=== PATIENT | female | born 1945 | race Caucasian/White ===

== ENCOUNTER 2016-11-07 20:00 | Outpatient (CLI) | payer MEDICARE, OTHER ==
--- NOTE | 2016-11-07 22:09 | Ultrasound Preliminary Report ---
Exam: US Ext Limited Non Vascular IMPRESSION: At the palpable lump at the right posterior calf, there is heterogeneous more hyperechoi c subcutaneous soft tissue with increased vascularity compared to the left side. Margins are not well -defined, but approximate measurements are 1.8 x 0.7 x 1.8 cm. Etiology is not certain but this could represent a soft tissue mass versus focal scarring. A MR or CT without and with contrast could be ob tained to further evaluate. RADIA The call report notification system was initiated by Dr. Dominga Jimenez at 21:53 hrs on 11/07/16. The above findings were discussed with Donna Diaz by Dominga Jimenez at 22:07 hrs on 11/07/16. SITE ID: [id number]
--- NOTE | 2016-11-07 22:12 | Ultrasound Report ---
EXAM: RIGHT UPPER EXTREMITY ULTRASOUND - LIMITED EXAM DATE: 11/07/2016 09:22 PM. CLINICAL HISTORY: Right posterior calf lump COMPARISON: None. TECHNIQUE: Real-time scanning was performed with static images obtained. Area scanned is the right po sterior calf at the lump. FINDINGS: At the palpable lump at the right posterior calf, there is heterogeneous more hyperechoic s ubcutaneous soft tissue with increased vascularity compared to the left side. Margins are not well-de fined, but approximate measurements are 1.8 x 0.7 x 1.8 cm. Etiology is not certain but this could re present a soft tissue mass versus focal scarring. A MR or CT without and with contrast could be obtai meena to further evaluate. IMPRESSION: At the palpable lump at the right posterior calf, there is heterogeneous more hyperechoi c subcutaneous soft tissue with increased vascularity compared to the left side. Margins are not well -defined, but approximate measurements are 1.8 x 0.7 x 1.8 cm. Etiology is not certain but this could represent a soft tissue mass versus focal scarring. A MR or CT without and with contrast could be ob tained to further evaluate. RADIA The call report notification system was initiated by Dr. Dominga Jimenez at 21:53 hrs on 11/07/16. The above findings were discussed with Donna Diaz by Dominga Jimenez at 22:07 hrs on 11/07/16. Referring Provider Line: [phone] SITE ID: [id number]
== END 2016-11-07 20:01 | disposition home or self-care (01) ==
LOC: DI 20:00
PROVIDERS: ATTEND Internal Medicine
DX: M79.604 Pain in right leg (principal); R22.9 Localized swelling, mass and lump, unspecified
CPT/HCPCS: 76882

== ENCOUNTER 2016-12-18 06:15 | Day surgery (SDC) | payer MEDICARE, OTHER ==
[2016-12-18] MEDS ORDERED: ceFAZolin 2 GM/50 ML 50 ML IV ONE (06:29)
[2016-12-18] MEDS ORDERED: LACTATED RINGERS 1,000 ML IV ONE (06:49)
[2016-12-18] MEDS ORDERED: SCOPOLAMINE PATCH TOP ONE (07:25)
[2016-12-18] MEDS ORDERED: ONDANSETRON 4 MG/2 ML VIAL IVP ONE (08:00)
[2016-12-18] MEDS ORDERED: LIDOCAINE-MPF 2% 5 ML VIAL IM ONE (08:00)
[2016-12-18] MEDS ORDERED: PROPOFOL 200 MG/20 ML VIAL IVP ONE (08:00)
[2016-12-18] MEDS ORDERED: DEXAMETHASONE 4 MG/ML VIAL IVP ONE (08:00)
[2016-12-18] MEDS ORDERED: MIDAZOLAM 2 MG/2 ML VIAL IVP ONE (08:00)
[2016-12-18] MEDS ORDERED: fentaNYL 100 MCG/2 ML VIAL IVP ONE (08:00)
[2016-12-18] MEDS ORDERED: BUPIVACAINE 0.5% PF 30 ML VIAL SUBQ ONE ×2 (08:01)
[2016-12-18] MEDS ORDERED: KETOROLAC 15 MG/ML VIAL ONE (09:14)
[2016-12-18 09:38] VITALS: BP 157/72
--- NOTE | 2016-12-18 14:34 | OPERATIVE REPORT ---
DATE OF SURGERY: 12/18/2016 00:00:00 PREOPERATIVE DIAGNOSIS: Right calf mass. POSTOPERATIVE DIAGNOSIS: Right calf mass. NAME OF PROCEDURE: Excision of right calf mass. SURGEON: Arlen Hagen MD ANESTHESIOLOGIST: Jolynn Durán FINDINGS: After obtaining informed consent from the patient, she was brought into the operating room and positioned on the operating table in the left lateral decubitus position, taking note of pressure points. LMA was placed by Anesthesia. 2 g of ancef was administered. She was then prepped and draped in the usual sterile fashion and a timeout was taken according to protocol. An elliptical incision was created above the palpable nodule. This was deepened down through the subcutaneous tissue down to the underlying muscle, and the whole mass was excised and passed off as a specimen. This was noted to be fatty tissue consistent with likely an old scar. The cavity was then inspected for signs of bleeding and hemostasis was achieved. The incision was then closed with 3-0 Vicryl and 4-0 Monocryl. Dermabond was then applied. The patient was extubated and taken to the recovery room in stable condition. ESTIMATED BLOOD LOSS: None. COMPLICATIONS: None. SPECIMEN: Right calf lesion. JOB #: [id number] EXT JOB #:[id number] [facility]ITALRocky
== END 2016-12-18 06:16 | disposition home or self-care (01) ==
LOC: SDS 06:15
PROVIDERS: ATTEND Surgery
PROC: 0JBN0ZZ Excision of Right Lower Leg Subcutaneous Tissue and Fascia, Open Approach (ICD-10-PCS; principal; 2016-12-18 07:30)
DX: L90.5 Scar conditions and fibrosis of skin (principal); M79.89 Other specified soft tissue disorders; L08.9 Local infection of the skin and subcutaneous tissue, unspecified; E03.9 Hypothyroidism, unspecified; F32.9 Major depressive disorder, single episode, unspecified; Z90.49 Acquired absence of other specified parts of digestive tract; Z90.710 Acquired absence of both cervix and uterus; Z82.3 Family history of stroke; Z80.9 Family history of malignant neoplasm, unspecified; Z87.891 Personal history of nicotine dependence
CPT/HCPCS: 11402; J0690; J3490; J7120; 88305

== ENCOUNTER 2017-03-15 08:55 | Outpatient (CLI) | payer MEDICARE, OTHER ==
--- NOTE | 2017-03-28 16:39 | Mammography Report ---
DIGITAL SCREENING MAMMOGRAM: 03/15/2017 CLINICAL INDICATION: A 72-year-old, for screening. COMPARISON: The patient reports having had previous mammograms in [place], [place], but previous films are not yet available for comparison. If films become available, an addendum will be issued. TECHNIQUE: Routine CC and MLO projections were obtained of the breasts. FINDINGS: The breasts demonstrate heterogeneously dense fibroglandular parenchyma bilaterally. Coars e and punctate, typically benign calcifications are present. No suspicious masses, clustered microcal cifications, or regions of architectural distortion are identified. IMPRESSION: BENIGN FINDINGS. RECOMMENDATION: ROUTINE ANNUAL SCREENING UNLESS OTHERWISE CLINICALLY INDICATED. BIRADS CATEGORY 2-BENIGN FINDINGS. STANDARD QUALIFYING STATEMENTS 1. This examination was reviewed with the aid of Computer-Aided Detection (CAD). 2. A negative or benign imaging report should not delay biopsy if clinically suspicious findings are present. Consider surgical consultation if warranted. More than 5% of cancers are not identified by i maging. 3. Dense breasts may obscure an underlying neoplasm. JOB #: [id number] EXT JOB #:[id number]
== END 2017-03-15 08:56 | disposition home or self-care (01) ==
LOC: DI 08:55
PROVIDERS: ATTEND Internal Medicine
DX: Z12.31 Encounter for screening mammogram for malignant neoplasm of breast (principal)
CPT/HCPCS: 77067

== ENCOUNTER 2017-03-15 11:47 | Outpatient (CLI) | payer MEDICARE, OTHER ==
[2017-03-16 13:16] LABS: TEST RESULT REPORT
== END 2017-03-15 11:48 | disposition home or self-care (01) ==
LOC: LAB.R 11:47
PROVIDERS: ATTEND Internal Medicine
DX: R19.7 Diarrhea, unspecified (principal)
CPT/HCPCS: 81599; 83630; 87045; 87046; 87177; 87209; 87329; 87493

== ENCOUNTER 2018-02-02 20:51 | Emergency (ER) | payer MEDICARE, OTHER ==
[2018-02-02 21:08] VITALS: BP 161/65
[2018-02-02] MEDS ORDERED: IOPAMIDOL-300 100 ML VIAL ONE (21:50)
[2018-02-02 22:07] LABS: BASOPHILS % (AUTO) 0.6 %; EOSINOPHILS # (AUTO) 0.1 10^3/uL (0.0-0.7); EOSINOPHILS % (AUTO) 3.1 %; HGB - HEMOGLOBIN 12.8 g/dL (12.0-16.0); LYMPHOCYTES # (AUTO) 1.3 10^3/uL (1.5-3.5); LYMPHOCYTES % (AUTO) 29.8 %; MEAN CORPUSCULAR HEMOGLOBIN 30.1 pg (27.0-31.0); MEAN CORPUSCULAR HGB CONC 34.1 g/dL (32.0-36.0); MEAN CORPUSCULAR VOLUME 88.2 fL (81.0-99.0); MEAN PLATELET VOLUME 8.7 fL (7.9-10.8); MONOCYTES # (AUTO) 0.4 10^3/uL (0.0-1.0); MONOCYTES % (AUTO) 10.1 %; NEUTROPHILS # (AUTO) 2.4 10^3/uL (1.5-6.6); NEUTROPHILS % (AUTO) 56.4 %; PLT - PLATELET COUNT 182 10^3/uL (130-450); RED BLOOD COUNT 4.26 10^6/uL (4.20-5.40); RED CELL DISTRIBUTION WIDTH 13.2 % (12.0-15.0); WHITE BLOOD COUNT 4.3 x10^3/uL (4.8-10.8)
[2018-02-02 22:21] LABS: ALBUMIN 3.8 g/dL (3.2-5.5); ALBUMIN/GLOBULIN RATIO 1.4 (1.0-2.2); BILIRUBIN,TOTAL 0.4 mg/dL (0.2-1.0); CALCIUM 9.1 mg/dL (8.5-10.3); CREATININE 0.8 mg/dL (0.4-1.0); TOTAL PROTEIN 6.5 g/dL (6.7-8.2)
[2018-02-02] MEDS ORDERED: IOPAMIDOL-300 100 ML VIAL IVP ONE (22:57)
--- NOTE | 2018-02-02 23:04 | CT Report ---
Procedure Date: 02/02/2018 Accession Number: [id number] / [id number] Procedure: CT - Abdomen/Pelvis W/ CPT Code: FULL RESULT: EXAM: CT ABDOMEN AND PELVIS EXAM DATE: 02/02/2018 10:55 PM. CLINICAL HISTORY: Abd pain post surgery. COMPARISONS: ABDOMEN/PELVIS W/O 01/29/2016 9:52 AM. TECHNIQUE: Routine helical CT imaging was performed through the abdomen and pelvis. IV contrast: 100 ML ISOVUE 300. Enteric contrast: No. Reconstructions: Coronal and sagittal. In accordance with CT protocol optimization, one or more of the following dose reduction techniques were utilized for this exam: automated exposure control, adjustment of mA and/or KV based on patient size, or use of iterative reconstructive technique. FINDINGS: Lung Bases: Unremarkable. Liver: Normal. No masses. Gallbladder/Bile Ducts: Changes of cholecystectomy. No biliary dilatation. Spleen: Normal. Pancreas: Normal. Adrenal Glands: Normal. Kidneys: Normal. No masses or hydronephrosis. Peritoneal Cavity/Bowel: Postoperative changes in the sigmoid colon. No small bowel dilatation, free gas, or free fluid. No abdominal adenopathy. The appendix is well visualized and normal. Pelvic Organs: Normal. The bladder and visualized pelvic organs are within normal limits. Vasculature: No aneurysms or other significant abnormality. Bones: No significant abnormality. Other: None. IMPRESSION: Postoperative changes. No evidence of bowel obstruction or perforation. Normal appendix. RADIA
--- NOTE | 2018-02-02 23:17 | ED Physician Documentation ---
PD HPI ABD PAIN - Stated complaint Stated Complaint: INCISION CONCERNS - Chief complaint Chief Complaint: Wound - History obtained from History obtained from: Patient - History of Present Illness Timing - onset: Today Timing - details: Abrupt onset, Still present Quality: Aching, Sharp Location: RLQ Worsened by: Moving, Palpation Associated symptoms: No: Fever, Nausea, Vomiting Similar symptoms before: Work up / diagnostics Recently seen: Surgery - Additional information Additional information: Patient is a 72 year old female who is presenting to the emergency department for abdominal pain. patient had abdominal surgery a few weeks ago. patient states that she has gently gone back to doing yoga and other activities. today she was painting and stretching and developed severe pain in the right lower quadrant where she had mesh placed. Review of Systems Ten Systems: 10 systems reviewed and negative Constitutional: denies: Fever, Chills GI: reports: Abdominal Pain. 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, Other - Present Medications Home Medications: Ambulatory Orders Medication Instructions Recorded Confirmed Escitalopram [Lexapro] 10 mg PO DAILY 08/13/15 12/18/16 Levothyroxine [Synthroid] 75 mcg PO DAILY 08/13/15 12/18/16 Acetaminophen [Tylenol] 325 mg PO DAILY PRN 12/07/16 12/18/16 Ibuprofen 200 mg PO DAILY PRN 12/07/16 12/18/16 - Allergies Allergies/Adverse Reactions: Allergies Allergy/AdvReac Type Severity Reaction Status Date / Time gabapentin Allergy Hallucinati Verified 02/02/18 21:08 ons milk Allergy Unknown Verified 02/02/18 21:08 hydromorphone HCl * AdvReac Intermediate Nausea Verified 02/02/18 21:08 [From Dilaudid] methocarbamol AdvReac Intermediate Nausea Verified 02/02/18 21:08 - Social History Does the pt smoke?: No Smoking Status: Never smoker Does the pt drink ETOH?: Yes Does the pt have substance abuse?: No - Immunizations Immunizations are current?: No Immunizations: TDAP >10years/unknown - POLST Patient has POLST: No PD ED PE NORMAL - Vitals Vital signs reviewed: Yes - General General: Alert and oriented X 3 - HEENT HEENT: Atraumatic - Cardiac Cardiac: RRR - Respiratory Respiratory: No respiratory distress - Abdomen Abdomen: Soft - Derm Derm: Normal color, Warm and dry - Extremities Extremities: No deformity - Neuro Eye Opening: Spontaneous - Psych Psych: Normal mood PD ED PE EXPANDED - Abdomen Abdomen: Tender to palpation (mild tenderness to palpation or right lower quadrant, no rebound), RLQ, Surgical scars Results - Vitals Vitals: Vital Signs - 24 hr 02/02/18 21:03 Temperature 36.7 C Heart Rate 71 Respiratory 16 Rate Blood Pressure 161/65 H O2 Saturation 97 Oxygen O2 Source Room air - Labs Labs: Laboratory Tests 02/02/18 02/02/18 22:02 22:02 WBC 4.3 L RBC 4.26 Hgb 12.8 Hct 37.6 MCV 88.2 MCH 30.1 MCHC 34.1 RDW 13.2 Plt Count 182 MPV 8.7 Neut # (Auto) 2.4 Lymph # (Auto) 1.3 L [place] # (Auto) 0.4 Eos # (Auto) 0.1 Baso # (Auto) 0.0 Absolute Nucleated RBC 0.00 Nucleated RBC % 0.0 Sodium 140 Potassium 3.5 Chloride 105 Carbon Dioxide 28 Anion Gap 7.0 BUN 18 Creatinine 0.8 Estimated GFR (MDRD) 71 L Glucose 116 H Calcium 9.1 Total Bilirubin 0.4 AST 19 ALT 19 Alkaline Phosphatase 92 Total Protein 6.5 L Albumin 3.8 Globulin 2.7 Albumin/Globulin Ratio 1.4 Lipase 40 - Rads (name of study) ct abd pelvis Radiology: Final report received (no acute findings) PD MEDICAL DECISION MAKING - ED course Complexity details: reviewed old records, reviewed results, re-evaluated patient , considered differential, d/w patient ED course: Patient was seen and examined at bedside. IV access was gained and labs were drawn. Imaging was ordered. when patient returned from imaging the results were reviewed. there were no significant abnormalities appreciated. Patient was made aware of the findings. patient required no further work up and was stable for discharge with outpatient follow up. - Sepsis Event Vital Signs: Vital Signs - 24 hr 02/02/18 21:03 Temperature 36.7 C Heart Rate 71 Respiratory 16 Rate Blood Pressure 161/65 H O2 Saturation 97 Oxygen O2 Source Room air Departure - Departure Disposition: 01 Home, Self Care Clinical Impression: Abdominal muscle strain Condition: Good Instructions: ED Strain Abdominal Muscle Follow-Up: Donna Diaz MD [Primary Care Provider] - Within 3 Days Comments: Your diagnostics today were within normal limits. there were no significant abnormalities on your blood work or imaging. It is likely a muscle strain. You should still follow up with your doctor on . You can apply ice or heat and take tylenol or motrin as needed for pain. You may return to the emergency department at any time for new, worsening or uncontrollable symptoms.
== END 2018-02-02 23:30 | disposition home or self-care (01) ==
LOC: ED 20:51
DX: S39.011A Strain of muscle, fascia and tendon of abdomen, initial encounter (principal); X50.9XXA Other and unspecified overexertion or strenuous movements or postures, initial encounter; Y93.89 Activity, other specified; I10 Essential (primary) hypertension
CPT/HCPCS: 36415; 74177; 80053; 83690; 85025; 99283; Q9967

== ENCOUNTER 2019-02-24 12:05 | Outpatient (CLI) | payer MEDICARE, OTHER | END 2019-02-24 12:06 | disposition critical access hospital (66) | LOC: EMS 12:05 | PROVIDERS: ATTEND Surgery | DX: M54.5 Low back pain (principal); W17.89XA Other fall from one level to another, initial encounter; Y93.89 Activity, other specified; Y92.007 Garden or yard of unspecified non-institutional (private) residence as the place of occurrence of the external cause | CPT/HCPCS: A0425; A0429 ==

== ENCOUNTER 2019-02-24 12:19 | Emergency (ER) | payer MEDICARE, OTHER ==
[2019-02-24] MEDS ORDERED: KETOROLAC 30 MG/ML VIAL IVP STA (12:42)
[2019-02-24] MEDS ORDERED: diazePAM INJ 5 MG/ML SYRINGE IVP STA ×2 (12:42→16:19)
--- NOTE | 2019-02-24 12:45 | ED Physician Documentation ---
PD HPI BACK PAIN - Stated complaint Stated Complaint: FALL OFF ZIPLINE - Chief complaint Chief Complaint: Back Pain - History obtained from History obtained from: Patient, Family - History of Present Illness Timing - onset: How many hours ago (1) Timing - duration: Hours (1) Timing - details: Abrupt onset Pain level max: 9 Pain level now: 7 Location: Lower, Right, Left Quality: Pain, Spasm, Similar to prior episodes Associated symptoms: No: Fever, Weakness, Numbness, Incontinent of urine, Unable to urinate, Hematuria, Incontinent of stool Improves with: Rest Worsened by: Movement Contributing factors: Other (fell at the end of a zipline and landed on her back. did not strike her head. no LOC. no neck or upper back pain.) Recently seen: Not recently seen Review of Systems Ten Systems: 10 systems reviewed and negative Constitutional: denies: Fever, Chills Nose: denies: Rhinorrhea / runny nose, Congestion Respiratory: denies: Cough GI: denies: Abdominal Pain, Nausea, Vomiting, Diarrhea : denies: Dysuria Skin: denies: Rash Musculoskeletal: denies: Neck pain Neurologic: denies: Focal weakness, Numbness, Confused, Altered mental status PD PAST MEDICAL HISTORY - Past Medical History Cardiovascular: Hypertension Respiratory: None Endocrine/Autoimmune: HyPOthyroidism GI: Chronic diarrhea, Diverticulitis, Cholelithiasis : Kidney stones HEENT: Chronic vision loss, Chronic hearing loss Psych: Depression Musculoskeletal: Osteoarthritis, Chronic back pain Derm: None - Past Surgical History 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, Other - Present Medications Home Medications: Ambulatory Orders Medication Instructions Recorded Confirmed Escitalopram [Lexapro] 10 mg PO DAILY 08/13/15 12/18/16 Levothyroxine [Synthroid] 75 mcg PO DAILY 08/13/15 12/18/16 Acetaminophen [Tylenol] 325 mg PO DAILY PRN 12/07/16 12/18/16 Ibuprofen 200 mg PO DAILY PRN 12/07/16 12/18/16 - Allergies Allergies/Adverse Reactions: Allergies Allergy/AdvReac Type Severity Reaction Status Date / Time gabapentin Allergy Hallucinati Verified 02/24/19 12:29 ons milk Allergy Unknown Verified 02/24/19 12:29 hydromorphone HCl * AdvReac Intermediate Nausea Verified 02/24/19 12:29 [From Dilaudid] methocarbamol AdvReac Intermediate Nausea Verified 02/24/19 12:29 - Social History Does the pt smoke?: No Smoking Status: Never smoker Does the pt drink ETOH?: Yes Does the pt have substance abuse?: No - Immunizations Immunizations are current?: No Immunizations: TDAP >10years/unknown - POLST Patient has POLST: No PD ED PE NORMAL - Vitals Vital signs reviewed: Yes - General General: Alert and oriented X 3, Well developed/nourished, Other (lying on her side on a backboard from EMS. ) - HEENT HEENT: Atraumatic, PERRL, Moist mucous membranes - Neck Neck: Supple, no meningeal sign, No bony TTP, Other (no stepoff or deformity) - Cardiac Cardiac: RRR, Strong equal pulses - Respiratory Respiratory: No respiratory distress, Clear bilaterally - Abdomen Abdomen: Soft, Non tender, Non distended - Back Back: Other (TTP low lumbar L4-5, no stepoff or deformity. ) - Derm Derm: Warm and dry - Extremities Extremities: No tenderness to palpate, Normal ROM s pain - Neuro Neuro: Alert and oriented X 3, diagnostic cardiac sonographer 2-12 intact, No motor deficit, No sensory deficit, Normal speech Eye Opening: Spontaneous Motor: Obeys Commands Verbal: Oriented GCS Score: 15 - Psych Psych: Normal mood, Normal affect Results - Vitals Vitals: Vital Signs - 24 hr 02/24/19 02/24/19 02/24/19 12:23 12:35 15:17 Temperature 36.1 C L 36.5 C Heart Rate 79 76 68 Respiratory 18 18 20 Rate Blood Pressure 135/71 H 145/114 H 170/81 H O2 Saturation 99 99 100 02/24/19 02/24/19 02/24/19 16:06 16:42 17:35 Temperature Heart Rate 70 65 68 Respiratory 16 16 16 Rate Blood Pressure 175/85 H 142/71 H 159/65 H O2 Saturation 99 97 97 Oxygen O2 Source Nasal cannula - Labs Labs: Laboratory Tests 02/24/19 02/24/19 02/24/19 13:57 13:57 14:20 WBC 11.6 H RBC 4.65 Hgb 14.0 Hct 42.2 MCV 90.8 MCH 30.1 MCHC 33.2 RDW 12.4 Plt Count 156 MPV 10.6 Neut # (Auto) 10.1 H Lymph # (Auto) 0.5 L Ellis # (Auto) 0.8 Eos # (Auto) 0.0 Baso # (Auto) 0.0 Absolute Nucleated RBC 0.00 Nucleated RBC % 0.0 Sodium 141 Potassium 3.7 Chloride 103 Carbon Dioxide 29 Anion Gap 9.0 BUN 18 Creatinine 0.7 Estimated GFR (MDRD) 82 L Glucose 130 H Calcium 9.2 Total Bilirubin 0.6 AST 36 ALT 32 Alkaline Phosphatase 87 Total Protein 6.7 Albumin 3.8 Globulin 2.9 Albumin/Globulin Ratio 1.3 Lipase 24 Urine Color YELLOW Urine Clarity CLEAR Urine pH 6.5 Ur Specific [place] 1.020 Urine Protein NEGATIVE Urine Glucose (UA) NEGATIVE Urine Ketones NEGATIVE Urine Occult Blood NEGATIVE Urine Nitrite NEGATIVE Urine Bilirubin NEGATIVE Urine Urobilinogen 0.2 (NORMAL) Ur Leukocyte Esterase NEGATIVE Ur Microscopic Review NOT INDICATED Urine Culture Comments NOT INDICATED - Rads (name of study) L spine xray Radiology: Prelim report reviewed, EMP read contemporaneously, See rad report (Biconcave compression fracture of T12. ) head Ct Radiology: Prelim report reviewed, EMP read contemporaneously, See rad report (Negative for an acute or focal intracranial abnormality. ) T spine CT Radiology: Prelim report reviewed, EMP read contemporaneously, See rad report CT chest Radiology: Prelim report reviewed, EMP read contemporaneously, See rad report (T9 and T12 thoracic spine fractures with posterior mediastinal hematoma. 2. Trace left pleural effusion. 3. Left lower lobe atelectasis. 4. Chronic granulomatous disease. ) C spine Ct Radiology: Prelim report reviewed, EMP read contemporaneously, See rad report (Negative for fracture and subluxation of the cervical spine. ) PD MEDICAL DECISION MAKING - ED course Complexity details: reviewed results, re-evaluated patient, considered differential, d/w patient, d/w family ED course: 74-year-old female presents after a fall off the zip line. She is found to have a T9 Chance fracture, unstable with retropulsed fragments in the canal with moderate canal stenosis. She also has a T12 burst fracture and a small avulsion fracture of T10. Small hemopneumothorax on the left. Neurologically intact. Discussed the case with Dr. Santos, [facility] emergency department and she graciously accepts in transfer at 1650. Patient will be airlifted. COBRA forms completed. This document was made in part using voice recognition software. While efforts are made to proofread this document, sound alike and grammatical errors may occur. Departure - Departure Disposition: 02 Transfer Acute Care Hosp Clinical Impression: Burst fracture of T9 vertebra, Burst fracture of T12 vertebra, Hemopneumothorax Condition: Stable Discharge Date/Time: 02/24/19 17:54
[2019-02-24] MEDS ORDERED: ONDANSETRON 4 MG/2 ML VIAL IVP STA (12:48)
--- NOTE | 2019-02-24 13:46 | XRAY Report ---
Reason: fall, low back pain Procedure Date: 02/24/2019 Accession Number: [id number] / [id number] Procedure: XR - Lumbar Spine 2 View CPT Code: FULL RESULT: EXAM: LUMBOSACRAL SPINE RADIOGRAPHY EXAM DATE: 02/24/2019 01:19 PM. CLINICAL HISTORY: Fall, low back pain. COMPARISONS: ABDOMEN/PELVIS W/ 02/02/2018 10:39 PM. TECHNIQUE: 2 views. FINDINGS: Alignment: Minimal scoliosis. No listhesis. Bones: 5 lumbar vertebrae. Biconcave compression fracture of T12. No other definite fracture or bone lesion. Disks: Normal. Disk heights are maintained. Facets: Degenerative changes at L4-L5 and L5-S1. Sacroiliac Joints: Unremarkable. Soft Tissues: Scattered collections of bowel gas with no focal dilation. Moderate amount of stool. IMPRESSION: Biconcave compression fracture of T12. RADIA
[2019-02-24 14:03] LABS: BASOPHILS % (AUTO) 0.2 %; EOSINOPHILS % (AUTO) 0.2 %; LYMPHOCYTES # (AUTO) 0.5 10^3/uL (1.5-3.5); LYMPHOCYTES % (AUTO) 4.7 %; MEAN CORPUSCULAR HEMOGLOBIN 30.1 pg (27.0-31.0); MEAN CORPUSCULAR HGB CONC 33.2 g/dL (32.0-36.0); MEAN CORPUSCULAR VOLUME 90.8 fL (81.0-99.0); MEAN PLATELET VOLUME 10.6 fL (7.9-10.8); MONOCYTES # (AUTO) 0.8 10^3/uL (0.0-1.0); MONOCYTES % (AUTO) 6.7 %; NEUTROPHILS # (AUTO) 10.1 10^3/uL (1.5-6.6); PLT - PLATELET COUNT 156 10^3/uL (130-450); RED BLOOD COUNT 4.65 10^6/uL (4.20-5.40); RED CELL DISTRIBUTION WIDTH 12.4 % (12.0-15.0); WHITE BLOOD COUNT 11.6 x10^3/uL (4.8-10.8)
[2019-02-24 14:16] LABS: ALBUMIN 3.8 g/dL (3.2-5.5); ALBUMIN/GLOBULIN RATIO 1.3 (1.0-2.2); BILIRUBIN,TOTAL 0.6 mg/dL (0.2-1.0); CALCIUM 9.2 mg/dL (8.5-10.3); CREATININE 0.7 mg/dL (0.4-1.0); TOTAL PROTEIN 6.7 g/dL (6.7-8.2)
[2019-02-24 14:31] LABS: BILIRUBIN,URINE NEGATIVE (NEGATIVE); GLUCOSE, URINE (UA) NEGATIVE (NEGATIVE); KETONES,URINE (UA) NEGATIVE (NEGATIVE); LEUKOCYTE ESTERASE, URINE NEGATIVE (NEGATIVE); NITRITE,URINE NEGATIVE (NEGATIVE); OCCULT BLOOD,URINE NEGATIVE (NEGATIVE); PH,URINE 6.5 PH (5.0-7.5); PROTEIN,URINE NEGATIVE (NEGATIVE); UROBILINOGEN,URINE 0.2 (NORMAL) E.U./dL (NORMAL)
[2019-02-24 14:34] LABS: CLARITY,URINE CLEAR (CLEAR)
[2019-02-24] MEDS ORDERED: IOVERSOL 320 100 ML VIAL IVP ONE ×3 (14:34→17:24)
--- NOTE | 2019-02-24 16:12 | CT Report ---
Reason: abdominal pain s/p fall. Procedure Date: 02/24/2019 Accession Number: [id number] / [id number] Procedure: CT - Abdomen/Pelvis W CPT Code: FULL RESULT: EXAM: CT ABDOMEN AND PELVIS EXAM DATE: 02/24/2019 03:07 PM. CLINICAL HISTORY: Trauma. Abdominal pain after fall. COMPARISONS: ABDOMEN/PELVIS W/ 02/02/2018 10:39 PM. TECHNIQUE: Routine helical CT imaging was performed through the abdomen and pelvis. IV contrast: 100 cc Optiray 320. Enteric contrast: No. Reconstructions: Coronal and sagittal. In accordance with CT protocol optimization, one or more of the following dose reduction techniques were utilized for this exam: automated exposure control, adjustment of mA and/or KV based on patient size, or use of iterative reconstructive technique. FINDINGS: Images chest: Trace left hemopneumothorax. There is a peripheral 9 mm nodule opacity within the peripheral aspect of the left lower lobe which may represent a laceration or contusion versus a nodule. An ectatic lumbar vein passes anterior to the T9 fracture without obvious injury. Liver: The liver demonstrates a few scattered tiny subcentimeter low-density foci, technically too small to accurately characterize and indeterminant but statistically likely to represent tiny cysts. Gallbladder: Cholecystectomy. Biliary: Mild dilatation of common bile duct, likely physiologic after cholecystectomy. No intrahepatic biliary dilatation. Pancreas: Unremarkable. Spleen: Unremarkable. Adrenal glands: Unremarkable. Kidneys: The kidneys demonstrate a few scattered low-density foci, some of which represent cysts, others are too small to accurately characterize and indeterminate but statistically likely to represent tiny cysts. Urinary bladder: Unremarkable. Reproductive organs: Hysterectomy. Bowel: Again status post least partial sigmoidectomy with anastomosis in the left lower quadrant. Stomach: Unremarkable. Appendix: Unremarkable. Miscellaneous: No free fluid. No extraluminal gas. Aorta: Mild aortic atherosclerosis. Normal in caliber. Lymph nodes: No pathologically enlarged lymph nodes identified. Bones: The last well-formed disk space will be labeled L5-S1. The bones are osteopenic. Acute comminuted fracture of the T9 vertebral body with extension into the posterior elements including the bilateral lamina consistent with a 3 column Chance fracture. There is a 50% height loss and 4 mm retropulsion of fracture fragments causing moderate central canal stenosis. Acute minimally displaced corner fracture of the right aspect of the T10 superior endplate. Acute burst fracture of the T12 vertebral body with approximately 25% anterior vertebral body height loss and 4 mm retropulsion of fracture fragments causing mild central canal stenosis. There is no obvious evidence of posterior extension of the T12 fracture. Small hematoma surrounds the T9 vertebral body fracture. Sidewalls: Unremarkable. IMPRESSION: 1. Acute burst fracture of the T9 vertebral body with extension into the posterior elements including the bilateral lamina consistent with a 3 column Chance fracture. There is a 50% height loss and 4 mm retropulsion of fracture fragments causing moderate central canal stenosis. This is an unstable fracture. Recommend surgical consultation and MRI for further evaluation to exclude cord injury. 2. Acute 2 column burst fracture of the T12 vertebral body with approximately 25% anterior vertebral body height loss and 4 mm retropulsion of fracture fragments causing mild central canal stenosis. 3. Acute minimally displaced corner fracture of the right aspect of the T10 superior endplate. 4. Trace left hemopneumothorax. There is a peripheral 9 mm nodule opacity within the peripheral aspect of the left lower lobe which may represent a laceration or contusion versus nodule. Recommend CT chest for further evaluation. 5. Hysterectomy, cholecystectomy and partial sigmoidectomy. RADIA The call report notification system was initiated by Dr. Jem Watkins at 03:49 PM on 02/24/2019. The above call report findings were discussed with Sammy Sethi by Dr. Jem Watkins at 03:52 PM on 02/24/2019.
[2019-02-24] MEDS ORDERED: fentaNYL 100 MCG/2 ML VIAL IVP STA (16:19)
--- NOTE | 2019-02-24 16:40 | CT Report ---
Reason: fall, back injury Procedure Date: 02/24/2019 Accession Number: [id number] / [id number] Procedure: CT - HEAD WO CPT Code: FULL RESULT: EXAM: CT HEAD EXAM DATE: 02/24/2019 04:07 PM. CLINICAL HISTORY: Fall, back injury. COMPARISON: None. TECHNIQUE: Multiaxial CT images were obtained from the foramen magnum to the vertex. Reformats: Sagittal and coronal. IV contrast: None. In accordance with CT protocol optimization, one or more of the following dose reduction techniques were utilized for this exam: automated exposure control, adjustment of mA and/or KV based on patient size, or use of iterative reconstructive technique. FINDINGS: Parenchyma: There is residual intravascular contrast which decreases the sensitivity in detecting intracranial hemorrhage. There is no midline shift or mass-effect. No abnormal enhancement of the brain. No visualized acute intracranial hemorrhage. Extraaxial Spaces: No subdural or epidural collections identified. Ventricles: Symmetric in size and normal in position. Sinuses and Orbits: Imaged paranasal sinuses, orbits, and mastoids show no significant abnormality. Bones: No evidence of fracture or calvarial defect. Other: None. IMPRESSION: Negative for an acute or focal intracranial abnormality. RADIA
--- NOTE | 2019-02-24 16:49 | CT Report ---
Reason: fall, back pain Procedure Date: 02/24/2019 Accession Number: [id number] / [id number] Procedure: CT - CERVICAL SPINE WO CPT Code: FULL RESULT: EXAM: CT CERVICAL SPINE WITHOUT CONTRAST DATE: 02/24/2019 04:07 PM. HISTORY: Fall, back pain. COMPARISONS: None. TECHNIQUE: Thin-section axial images were acquired of the cervical spine without contrast. Post-processing: Coronal and sagittal reformats. Other: None. In accordance with CT protocol optimization, one or more of the following dose reduction techniques were utilized for this exam: automated exposure control, adjustment of mA and/or KV based on patient size, or use of iterative reconstructive technique. FINDINGS: Alignment: No scoliosis or spondylolisthesis. Bones: No fracture or bone lesion. Interspace Levels/Facets: The disk height is maintained. Facet joints appear normal in alignment. Musculature: Normal. No fatty atrophy. Other: The paravertebral and prevertebral soft tissues are unremarkable. There is a calcified granuloma in the right upper lobe. IMPRESSION: 1. Negative for fracture and subluxation of the cervical spine. RADIA
--- NOTE | 2019-02-24 16:54 | CT Report ---
Reason: fall, back pain Procedure Date: 02/24/2019 Accession Number: [id number] / [id number] Procedure: CT - CHEST WO CPT Code: FULL RESULT: EXAM: CT CHEST EXAM DATE: 02/24/2019 04:08 PM. CLINICAL HISTORY: Fall, back pain. COMPARISONS: None. TECHNIQUE: Routine helical CT imaging was performed through the chest. IV contrast: None. Reconstructions: Coronal and sagittal. In accordance with CT protocol optimization, one or more of the following dose reduction techniques were utilized for this exam: automated exposure control, adjustment of mA and/or KV based on patient size, or use of iterative reconstructive technique. FINDINGS: Lungs/Pleura: There is a small peripheral opacity within the lateral left lower lobe. There is a trace left pleural effusion. Negative for pneumothorax. There are multiple calcified granulomas within the right upper lobe. Mediastinum: Heart size is normal. There is posterior mediastinal hemorrhage around thoracic spine fractures. Thoracic aorta is normal in caliber. Bones: There are fractures of T9 and T12. Described in separate thoracic spine CT report. Visualized Abdomen: Unremarkable. Other: None. IMPRESSION: 1. T9 and T12 thoracic spine fractures with posterior mediastinal hematoma. 2. Trace left pleural effusion. 3. Left lower lobe atelectasis. 4. Chronic granulomatous disease. RADIA
--- NOTE | 2019-02-24 17:08 | CT Report ---
Reason: fall, back pain Procedure Date: 02/24/2019 Accession Number: [id number] / [id number] Procedure: CT - THORACIC SPINE WO CPT Code: FULL RESULT: EXAM: CT THORACIC SPINE WITHOUT CONTRAST EXAM DATE: 02/24/2019 04:07 PM. CLINICAL HISTORY: Fall, back pain. COMPARISONS: ABDOMEN/PELVIS W/ 02/02/2018 10:39 PM. TECHNIQUE: Thin-section axial images were acquired of the thoracic spine from C7 to L1 without contrast. Post-processing: Coronal and sagittal reformats. Other: None. In accordance with CT protocol optimization, one or more of the following dose reduction techniques were utilized for this exam: automated exposure control, adjustment of mA and/or KV based on patient size, or use of iterative reconstructive technique. FINDINGS: Alignment: No subluxation or scoliosis. Bones: There is an acute 3 column burst fracture of the T9 vertebra. There is 60% loss of central vertebral body height. There is posterior bulging of the vertebral body which narrows the central spinal canal by 4-5 mm. There are acute bilateral fractures through the facets without displacement. There is an acute 2 column burst fracture of the anterior and middle column of the T12 vertebral body. There is 40% loss of central vertebral body height. There is pulse posterior bulging of the cortex narrowing the central spinal canal by 3-4 mm. No fracture of the pedicle, facets or lamina. There is an anterior column avulsion fracture of the anterior right T10 endplate. Vertebral body height at T10 is normal. No spinal canal stenosis. Disk Levels/Facets: Disk height grossly maintained. Musculature: Normal. No fatty atrophy. Other: There is a anterior paravertebral hematoma of the lower thoracic spine from T8-T12. IMPRESSION: 1. 3 column unstable T9 vertebral burst fracture with 60% loss of vertebral body height. Retropulsion causing 4-5 mm of central spinal canal stenosis. 2. 2 column T12 vertebral body burst fracture with approximately 40% loss of central endplate height and 3-4 mm of central spinal canal narrowing. 3. Avulsion fracture, anterior superior endplate of T10 vertebral body without subluxation. RADIA The above critical result findings were discussed with Sammy Sethi by Dr. Deangelo Guadarrama at 05:05 PM on 02/24/2019.
[2019-02-24 17:43] VITALS: BP 159/65
== END 2019-02-24 17:54 | disposition short-term general hospital (02) ==
LOC: EDUNIT# → EDBD → ED 12:19
DX: S27.2XXA Traumatic hemopneumothorax, initial encounter (principal); S22.072A Unstable burst fracture of T9-T10 vertebra, initial encounter for closed fracture; S22.079A Unspecified fracture of T9-T10 vertebra, initial encounter for closed fracture; S22.081A Stable burst fracture of T11-T12 vertebra, initial encounter for closed fracture; S27.892A Contusion of other specified intrathoracic organs, initial encounter; W17.89XA Other fall from one level to another, initial encounter; Y93.89 Activity, other specified; I10 Essential (primary) hypertension
CPT/HCPCS: 36415; 70450; 71250; 72100; 72125; 72128; 74177; 80053; 81003; 83690; 85025; 96374; 96375; 99285; Q9967; 81001; 87086

== ENCOUNTER 2019-05-16 08:17 | Outpatient (CLI) | payer MEDICARE, OTHER ==
--- NOTE | 2019-05-19 11:58 | DEXA Report ---
Reason: POSTMENOPAUSAL Procedure Date: 05/16/2019 Accession Number: [id number] / [id number] Procedure: DEX - Dexa Spine and/or Hip CPT Code: Final Report FULL RESULT: EXAM: Dexa Spine and/or Hip DATE: 05/16/2019 9:17 AM CLINICAL HISTORY: POSTMENOPAUSAL. THE PATIENT IS A 74 YEAR OLD FEMALE. PRIOR FRACTURE. TECHNIQUE: Dual energy x-ray absorptiometry (DXA) was performed on a [employer] System. Regions measured are the AP Spine, femoral neck, and if needed forearm. COMPARISON: None available. In accordance with the International Society for Clinical Densitometry (ISCD) guidelines, data from previous exams may be reanalyzed using current recommendations and techniques. This is done to allow a more accurate basis for comparison with the current study. FINDINGS: The data for the lumbar spine is as follows: BMD (g/cm/cm) T-SCORE Z-SCORE REGION L1 L2 1.131 -0.6 1.3 L3 0.979 -1.8 0.0 L4 0.979 -1.8 0.0 TOTAL NOTE: All evaluable vertebrae are used for classification The data for the hip is as follows: BMD (g/cm/cm) T-SCORE Z-SCORE REGION Neck 0.782 -1.8 0.0 TOTAL 0.851 -1.2 0.4 NOTE: The femoral neck or total proximal femur, whichever is lowest, is used for classification. The data for the forearm is as follows: BMD (g/cm/cm) T-SCORE Z-SCORE REGION 1/3 0.755 NOTE: The 33% radius of the nondominant forearm is used for classification. IMPRESSION: THE WHO CLASSIFICATION BASED ON THE INTERNATIONAL REFERENCE STANDARD IS OSTEOPENIA, REFERENCE HIP NECK AND SPINE RESULTS. THE FRACTURE RISK IS INCREASED. RECOMMENDATION: Patients with diagnosis of osteoporosis or osteopenia should have regular bone mineral density assessment. For those eligible for Medicare, routine testing is allowed once every 2 years. Testing frequency can be increased for patients who have rapidly progressing disease or for those who are receiving medical therapy to restore bone mass. COMMENT: World Health Organization (WHO) definitions for osteoporosis and osteopenia: NORMAL BMD: T-score at -1.0 or higher, fracture risk is low OSTEOPENIA BMD: T-score between -1.0 and -2.5, fracture risk is increased. OSTEOPOROSIS BMD: T-score at -2.5 or lower, fracture risk is high. National Osteoporosis Foundation recommends: 1. Obtain adequate dietary calcium (at least 1200 mg per day) and vitamin D (400-800 international units per day). 2. Participate, as appropriate, in regular weightbearing and muscle-strengthening exercise. 3. Avoid tobacco use and reduce alcohol and caffeine intake. 4. For more detailed information see the website at www.NOF.org.
== END 2019-05-16 08:18 | disposition home or self-care (01) ==
LOC: DI 08:17
PROVIDERS: ATTEND Internal Medicine
DX: Z13.820 Encounter for screening for osteoporosis (principal); M85.89 Other specified disorders of bone density and structure, multiple sites; Z78.0 Asymptomatic menopausal state
CPT/HCPCS: 77080

== ENCOUNTER 2020-06-28 17:41 | Outpatient (CLI) | payer MEDICARE | END 2020-06-28 17:42 | disposition home or self-care (01) | LOC: COV 17:41 | PROVIDERS: ATTEND Family Medicine | DX: R53.83 Other fatigue (principal); Z20.822 Contact with and (suspected) exposure to COVID-19 ==

== ENCOUNTER 2021-01-04 23:53 | Emergency (ER) | payer MEDICARE ==
[2021-01-05] MEDS: ONDANSETRON ODT 4 MG TABLET TL STA (01:09)
[2021-01-05 01:14] VITALS: BP 161/77
--- NOTE | 2021-01-05 01:14 | ED Physician Documentation ---
History of Present Illness - Stated complaint Stated Complaint: SOA/NAUSEA/SORE THROAT/HEADACHE - Chief complaint Chief Complaint: Abd Pain - History obtained from History obtained from: Patient - Additonal information Additional information: 75-year-old woman with history of high blood pressure, hypothyroidism, depression, presents with upper respiratory symptoms for the past 24 hours. She has had a sore throat, nonproductive cough, chills, and tightness in the throat as well as nausea and vomiting that is nonbloody nonbilious in the emergency department after a bout of coughing. Patient endorses sick contacts with her grandkids at home. denies chest pain, leg swelling, pleurisy, hemoptysis. +soa while coughing. 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, Other - Present Medications Home Medications: Ambulatory Orders Medication Instructions Recorded Confirmed Escitalopram [Lexapro] 10 mg PO DAILY 08/13/15 12/18/16 Levothyroxine [Synthroid] 75 mcg PO DAILY 08/13/15 12/18/16 Acetaminophen [Tylenol] 325 mg PO DAILY PRN 12/07/16 12/18/16 Ibuprofen 200 mg PO DAILY PRN 12/07/16 12/18/16 Benzonatate [Tessalon] 100 mg PO TID #30 01/05/21 Ondansetron Odt [Zofran Odt] 4 mg TL Q6H PRN #10 tablet 01/05/21 - Allergies Allergies/Adverse Reactions: Allergies Allergy/AdvReac Type Severity Reaction Status Date / Time gabapentin Allergy Hallucinati Verified 01/05/21 00:04 ons milk Allergy Unknown Verified 01/05/21 00:04 hydromorphone HCl * AdvReac Intermediate Nausea Verified 01/05/21 00:04 [From Dilaudid] methocarbamol AdvReac Intermediate Nausea Verified 01/05/21 00:04 - Social History Does the pt smoke?: No Smoking Status: Never smoker Does the pt drink ETOH?: Yes Does the pt have substance abuse?: No - Immunizations Immunizations are current?: No Immunizations: TDAP >10years/unknown - POLST Patient has POLST: No PD ED PE NORMAL - Vitals Vital signs reviewed: Yes - General General: Alert and oriented X 3, No acute distress, Well developed/nourished - HEENT HEENT: Atraumatic, PERRL, EOMI, Moist mucous membranes - Neck Neck: Supple, no meningeal sign - Cardiac Cardiac: RRR - Respiratory Respiratory: No respiratory distress, Clear bilaterally - Abdomen Abdomen: Non tender, Non distended - Derm Derm: Normal color, Warm and dry - Extremities Extremities: No deformity - Neuro Neuro: Alert and oriented X 3 - Psych Psych: Normal mood, Normal affect Results - Vitals Vitals: Vital Signs - 24 hr 01/04/21 23:59 Temperature 36.2 C L Heart Rate 106 H Respiratory 18 Rate Blood Pressure 141/78 H O2 Saturation 97 Oxygen O2 Source Room air PD MEDICAL DECISION MAKING - ED course ED course: 75-year-old woman presents with viral upper respiratory symptoms for the past day, with clear lung sounds. Education given about symptom management. Strict return precautions given. She will follow up with her primary doctor. Departure - Departure Disposition: 01 Home, Self Care Clinical Impression: Viral URI Condition: Good Instructions: ED Viral Syndrome Prescriptions: Benzonatate [Tessalon] 100 mg PO TID #30 Ondansetron Odt [Zofran Odt] 4 mg TL Q6H PRN #10 tablet PRN Reason: Nausea / Vomiting Comments: You were seen in the emergency department for a viral upper respiratory infection. You should follow-up with your primary doctor this week. Return to the emergency department if you have any new or worsening symptoms or other concerns. At your local pharmacy, you can pick up attendant oxymetazoline spray for urinalysis, to be used twice daily as needed but no more often than that. You can also get guaifenesin, an expectorant to help loosen up sputum. Cepacol throat drops help with your sore throat. A coolmist humidifier at the bedside at nighttime will help with the healing process. Drink lots of water and get lots of rest.
== END 2021-01-05 01:45 | disposition home or self-care (01) ==
LOC: ED 23:53
DX: J06.9 Acute upper respiratory infection, unspecified (principal)
CPT/HCPCS: 99282; 99284; Q0162

== ENCOUNTER 2021-07-31 15:56 | Emergency (ER) | payer MEDICARE ==
[2021-07-31] MEDS ORDERED: MORPHINE 2 MG/ML CARPUJECT IVP STA (16:12)
[2021-07-31] MEDS ORDERED: ONDANSETRON 4 MG/2 ML VIAL IVP STA (16:12)
--- NOTE | 2021-07-31 16:17 | ED Physician Documentation ---
PD HPI MAJOR TRAUMA - Stated complaint Stated Complaint: FELL OFF ROOF/ BACK PX - Chief complaint Chief Complaint: Trauma Ch/Bk - History obtained from History obtained from: Patient - Additional information Additional information: She was up on a ladder almost to the roof, she lost her balance and fell and landed on her side. She mostly complains of right posterior and lateral pelvic pain, also some back pain noting that she has chronic back pain with an extensive spinal fusion in the past. She has mild neck pain. No loss of consciousness or headache. No chest or abdominal pain. 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, Other - Present Medications Home Medications: Ambulatory Orders Medication Instructions Recorded Confirmed Escitalopram [Lexapro] 10 mg PO DAILY 08/13/15 07/31/21 Levothyroxine [Synthroid] 75 mcg PO DAILY 08/13/15 07/31/21 HYDROcod/ACETAM 5/325 [Severance 5/325] 1 - 2 tab PO Q6H PRN #15 tablet 07/31/21 - Allergies Allergies/Adverse Reactions: Allergies Allergy/AdvReac Type Severity Reaction Status Date / Time gabapentin Allergy Hallucinati Verified 07/31/21 16:14 ons milk Allergy Unknown Verified 07/31/21 16:14 hydromorphone HCl * AdvReac Intermediate Nausea Verified 07/31/21 16:14 [From Dilaudid] methocarbamol AdvReac Intermediate Nausea Verified 07/31/21 16:14 - Social History Does the pt smoke?: No Smoking Status: Never smoker Does the pt drink ETOH?: Yes Does the pt have substance abuse?: No - Immunizations Immunizations are current?: No Immunizations: TDAP >10years/unknown - POLST Patient has POLST: No PD ED PE NORMAL - Vitals Vital signs reviewed: Yes - General General: Alert and oriented X 3, No acute distress - HEENT HEENT: PERRL, EOMI - Neck Neck: Other (She is in a c-collar on initial evaluation, she has no bony tenderness but maintained in the collar pending imaging due to potential distracting injury.) - Cardiac Cardiac: RRR, No murmur - Respiratory Respiratory: No respiratory distress, Clear bilaterally - Abdomen Abdomen: Normal bowel sounds, Soft, Non tender - Back Back: No CVA TTP, Other (tender mildly to the lumbar spine, more so to the lateral and posterior pelvic brim on the right. No hip tenderness on the right.) - Extremities Extremities: No deformity, No tenderness to palpate, Normal ROM s pain, Other (Painless range of motion at all major joints including the right hip.) - Neuro Neuro: Alert and oriented X 3, No motor deficit, No sensory deficit, Normal speech Eye Opening: Spontaneous Motor: Obeys Commands Verbal: Oriented GCS Score: 15 Results - Vitals Vitals: Vital Signs - 24 hr 07/31/21 07/31/21 07/31/21 16:04 17:00 17:30 Temperature 36.8 C Heart Rate 88 76 73 Respiratory 18 18 16 Rate Blood Pressure 145/86 H 162/76 H 157/79 H O2 Saturation 99 99 93 Oxygen O2 Source Room air - Labs Labs: Laboratory Tests 07/31/21 07/31/21 07/31/21 16:18 16:18 16:28 WBC 9.7 RBC 4.47 Hgb 13.5 Hct 39.9 MCV 89.3 MCH 30.2 MCHC 33.8 RDW 12.6 Plt Count 178 MPV 10.8 Neut # (Auto) 7.5 H Lymph # (Auto) 1.3 L Waldo # (Auto) 0.7 Eos # (Auto) 0.1 Baso # (Auto) 0.0 Absolute Nucleated RBC 0.00 Nucleated RBC % 0.0 PT 11.8 INR 1.1 Sodium 134 L Potassium 3.6 Chloride 101 Carbon Dioxide 24 Anion Gap 9.0 BUN 16 Creatinine 0.7 Estimated GFR (MDRD) 82 L Glucose 130 H Calcium 9.2 - Rads (name of study) CT A/P Radiology: EMP read contemporaneously (New schmorls note L3 superior endplate. NAD otherwise) PD MEDICAL DECISION MAKING - ED course ED course: C-collar removed at 5:55 PM after completion of CT imaging. Neck remained nontender. Remainder of her imaging demonstrated no acute traumatic findings, she was fe eling better and remained nontender to palpation without abdominal pain or evidence of developing head injury. The patient was counseled as to the diagnosis and need for follow-up. I counseled the patient with regard to signs and symptoms that would necessitate an urgent reevaluation in the emergency department. They understand they are welcome to return at any time if worse or if not improving as expected. This document was made in part using voice recognition software. While efforts are made to proofread this documents, sound alike and grammatical errors may occur. I am prescribing a short course of short-acting opioid pain medication for this patient. I have reviewed the patients DI[employer]OND [employer]ER and no concerning findings were noted. I have discussed that the opioids are for short term therapy only, and will not be refilled from the ED. Departure - Departure Disposition: Home, Self Care Clinical Impression: Injury of back, Back strain, Fall from ladder Condition: Good Record reviewed to determine appropriate education?: Yes Instructions: ED Contusion Back Prescriptions: HYDROcod/ACETAM 5/325 [Severance 5/325] 1 - 2 tab PO Q6H PRN #15 tablet PRN Reason: Pain Comments: I sent a prescription electronically to the [facility] pharmacy at the corner of [address] [address] and [facility] here in [place]. Follow-up with your doctor in a week for recheck, return for new or worsening symptoms. As discussed the only pertinent positive imaging was what is called a Schmorl's node at the superior endplate of L3 which is a chronic finding, would not be related to the fall today. No obvious broken bones or other serious injuries or organ injuries from today's fall. I am prescribing a short course of narcotic pain medication for you. These are potentially dangerous and addictive medications that should be used carefully. These medications may constipate you. Take an pcol-bpm-jotbvox stool softener (docusate) twice daily with plenty of water while taking these medications. If you go 24 hours without a bowel movement, take ltud-gpi-lqixabf miralax, per package instructions. Do not drink or drive while taking these medications. If you received narcotic or sedating medications while in the emergency department, do not drive for 24 hours. Store this medication in a safe, secure place and out of reach of children. It is a violation of federal law to give or sell this medication to another person or to use in a manner other than prescribed. The ED will not refill narcotic prescriptions, including prescriptions lost or stolen. To dispose of unwanted medications: 1. [facility] at [address] in [place] has a medication drop box. They accept prescription medications (in pill form) Sunday through Sunday 9:00 a.m. to 5:00 p.m. 2. The [facility] accepts prescription medications (in pill form only) for disposal year round. Call for more information. 3. Contact the [facility] for the next [facility] sponsored prescription drug collection event. , [phone], or [phone]; Note that many narcotic pain relievers also contain Tylenol/acetaminophen. Please ensure that your total dose of acetaminophen from all sources does not exceed 3 g (3000 mg) per day.
[2021-07-31 16:20] LABS: BASOPHILS % (AUTO) 0.1 %; EOSINOPHILS # (AUTO) 0.1 10^3/uL (0.0-0.7); EOSINOPHILS % (AUTO) 0.8 %; HCT - HEMATOCRIT 39.9 % (37.0-47.0); HGB - HEMOGLOBIN 13.5 g/dL (12.0-16.0); LYMPHOCYTES # (AUTO) 1.3 10^3/uL (1.5-3.5); LYMPHOCYTES % (AUTO) 13.8 %; MEAN CORPUSCULAR HEMOGLOBIN 30.2 pg (27.0-31.0); MEAN CORPUSCULAR HGB CONC 33.8 g/dL (32.0-36.0); MEAN CORPUSCULAR VOLUME 89.3 fL (81.0-99.0); MEAN PLATELET VOLUME 10.8 fL (7.9-10.8); MONOCYTES # (AUTO) 0.7 10^3/uL (0.0-1.0); MONOCYTES % (AUTO) 7.5 %; NEUTROPHILS # (AUTO) 7.5 10^3/uL (1.5-6.6); NEUTROPHILS % (AUTO) 77.3 %; PLT - PLATELET COUNT 178 10^3/uL (130-450); RED BLOOD COUNT 4.47 10^6/uL (4.20-5.40); RED CELL DISTRIBUTION WIDTH 12.6 % (12.0-15.0); WHITE BLOOD COUNT 9.7 x10^3/uL (4.8-10.8)
[2021-07-31] MEDS ORDERED: IOVERSOL 320 100 ML VIAL IVP ONE ×2 (16:24→19:03)
[2021-07-31 16:28] LABS: CALCIUM 9.2 mg/dL (8.5-10.3); CREATININE 0.7 mg/dL (0.4-1.0); POTASSIUM 3.6 mmol/L (3.5-5.0)
[2021-07-31 16:38] LABS: INR 1.1 (0.8-1.2); PT - PROTHROMBIN TIME 11.8 secs (9.9-12.6)
--- NOTE | 2021-07-31 17:31 | CT Report ---
PROCEDURE: CT abdomen and pelvis with contrast INDICATIONS: fall from height, pelvic pain CONTRAST: IV CONTRAST: Isovue 300 ml: 100 PO CONTRAST: *NO PO CONTRAST TECHNIQUE: After the administration of contrast, 5 mm thick sections acquired from the diaphragms to the sym physis. 5 mm thick coronal and sagittal reformats were acquired. For radiation dose reduction, the following was used: automated exposure control, adjustment of mA and/or kV according to patient size . COMPARISON: 02/24/2019 FINDINGS: Image quality: Excellent. ABDOMEN: Lung bases: Lung bases are clear. Heart size is normal. Solid organs: Liver and spleen are normal in size and enhancement. Gallbladder surgically absent. Biliary system is non dilated. Pancreas enhances normally. No adrenal nodules. Kidneys demonstrate normal size and enhancement, without hydronephrosis. Bilateral renal extrarenal pelvis is similar p rior exam. Probable right parapelvic cyst present. No hydronephrosis. Peritoneum and bowel: Bowel loops demonstrate normal wall thickness and caliber. No free fluid or a ir. Prior sigmoid anastomotic surgery, noted. No bowel obstruction. Nodes and vessels: No retroperitoneal or mesenteric adenopathy by size criteria. Aorta and inferior vena cava are normal in size. Miscellaneous: No ventral hernias. PELVIS: Genitourinary: Bladder wall thickness is normal. Miscellaneous: No inguinal hernias or adenopathy. Bones: Schmorl's node involves the L3 superior endplate, new from the prior exam. There is now deliverer outside ior thoracolumbar instrumentation associated with a T12 fracture shows interval healing from the prio r. IMPRESSION: 1. New Schmorl's node involves the L3 superior endplate. Otherwise, no evidence of fracture or solid organ injury. 2. Prior sigmoid anastomosis, cholecystectomy and thoracolumbar vertebral instrumentation intact. Reviewed by: Jose Sarah MD on 07/31/2021 4:30 PM [place] Approved by: Jose Sarah MD on 07/31/2021 4:30 PM [facility] Station ID: [id number]
--- NOTE | 2021-07-31 17:40 | CT Report ---
PROCEDURE: From CT cervical spine without contrast INDICATIONS: fall from height, back pain TECHNIQUE: Noncontrast 3 mm thick sections acquired from the skull base to the T4 level. Sagittal a nd coronal reformats were then constructed. For radiation dose reduction, the following was used: a utomated exposure control, adjustment of mA and/or kV according to patient size. COMPARISON: 02/24/2019 FINDINGS: Image quality: Excellent. Bones: No fractures or dislocations. Visualized superior ribs are intact. Soft tissues: Prevertebral soft tissues are normal in thickness. No paravertebral hematomas. No ap ical pneumothoraces. Calcified granulomas noted in the upper lobes IMPRESSION: Unremarkable CT cervical spine without fracture or traumatic malalignment Biapical pulmonary calcified granulomas Reviewed by: Jose Sarah MD on 07/31/2021 4:39 PM [place] Approved by: Jose Sarah MD on 07/31/2021 4:39 PM [place] Station ID: [id number]
--- NOTE | 2021-07-31 17:55 | CT Report ---
PROCEDURE: CT thoracic spine without contrast INDICATIONS: fall from height, back pain TECHNIQUE: Noncontrast 3 mm thick sections acquired through the region of interest in the thoracic spine. Sagit salyl and coronal reformats were then constructed. For radiation dose reduction, the following was used : automated exposure control, adjustment of mA and/or kV according to patient size. COMPARISON: None. FINDINGS: Image quality: Excellent. Bones: No evidence of new fracture. The prior healing T9 fracture supported by posterior lateral fusi on lottie and screw instrumentation extending from T7 into the lumbar spine. Additional at T12 compressi on fracture is also healing in similar prior exam. Retropulsion of both these levels is similar, unc hanged. Healing fracture through the anterior superior corner of T10 is noted as well Soft tissues: No paravertebral masses or hematomas. Visualized posteromedial lungs appear clear. IMPRESSION: No evidence of new fracture or traumatic malalignment. Healing burst T9 and T12 fractures with retropulsed fragments and interval posterior lateral fusion w ith associated hardware as above. No evidence of hardware failure or loosening Reviewed by: Jose Sarah MD on 07/31/2021 4:54 PM AKST Approved by: Jose Sarah MD on 07/31/2021 4:54 PM AKST Station ID: [id number]
[2021-07-31] MEDS ORDERED: HYDROcod/ACET 5/325 Prepack 4 PO STA (18:03)
[2021-07-31 18:17] VITALS: BP 159/84
== END 2021-07-31 18:30 | disposition home or self-care (01) ==
LOC: ED 15:56
DX: S39.012A Strain of muscle, fascia and tendon of lower back, initial encounter (principal); M54.2 Cervicalgia; R10.2 Pelvic and perineal pain; W11.XXXA Fall on and from ladder, initial encounter; Y92.007 Garden or yard of unspecified non-institutional (private) residence as the place of occurrence of the external cause; M51.46 Schmorl's nodes, lumbar region; Z98.1 Arthrodesis status; I10 Essential (primary) hypertension
CPT/HCPCS: 36415; 72125; 72128; 74177; 80048; 85025; 85610; 96374; 96375; 99282; 99284; Q9967

== ENCOUNTER 2022-01-04 08:00 | Outpatient (CLI) | payer MEDICARE ==
[2022-01-04 15:54] LABS: BASOPHILS % (AUTO) 0.7 %; EOSINOPHILS # (AUTO) 0.1 10^3/uL (0.0-0.7); EOSINOPHILS % (AUTO) 3.1 %; HGB - HEMOGLOBIN 12.7 g/dL (12.0-16.0); LYMPHOCYTES # (AUTO) 1.2 10^3/uL (1.5-3.5); LYMPHOCYTES % (AUTO) 26.7 %; MEAN CORPUSCULAR HEMOGLOBIN 29.7 pg (27.0-31.0); MEAN CORPUSCULAR HGB CONC 31.8 g/dL (32.0-36.0); MEAN CORPUSCULAR VOLUME 93.7 fL (81.0-99.0); MONOCYTES # (AUTO) 0.5 10^3/uL (0.0-1.0); MONOCYTES % (AUTO) 10.1 %; NEUTROPHILS # (AUTO) 2.6 10^3/uL (1.5-6.6); NEUTROPHILS % (AUTO) 59.2 %; PLT - PLATELET COUNT 181 10^3/uL (130-450); RED BLOOD COUNT 4.27 10^6/uL (4.20-5.40); RED CELL DISTRIBUTION WIDTH 13.3 % (12.0-15.0); WHITE BLOOD COUNT 4.5 x10^3/uL (4.8-10.8)
[2022-01-04 16:22] LABS: ALBUMIN 3.8 g/dL (3.2-5.5); ALBUMIN/GLOBULIN RATIO 1.4 (1.0-2.2); ALKALINE PHOSPHATASE 76 IU/L (42-121); ALT ALANINE AMINOTRANSFERASE 18 IU/L (10-60); AST ASPARTATE AMINOTRANSFERASE 17 IU/L (10-42); BILIRUBIN,TOTAL 0.5 mg/dL (0.2-1.0); BUN - BLOOD UREA NITROGEN 14 mg/dL (6-20); CALCIUM 9.1 mg/dL (8.5-10.3); CARBON DIOXIDE - CO2 28 mmol/L (21-32); CHLORIDE 106 mmol/L (101-111); CHOL/HDL RATIO 3.6 (<4.4); CHOLESTEROL 242 mg/dL; CREATININE 0.7 mg/dL (0.4-1.0); GFR - MDRD 82 (>89); GLUCOSE 97 mg/dL (70-100); HDL CHOLESTEROL 67 mg/dL; LDL CHOLESTEROL,CALCULATED 162 mg/dL; LDL/HDL RATIO 2.4 (<4.4); POTASSIUM 4.4 mmol/L (3.5-5.0); SODIUM 140 mmol/L (135-145); TOTAL PROTEIN 6.6 g/dL (6.7-8.2); TRIGLYCERIDES 63 mg/dL; VLDL CHOLESTEROL 13 mg/dL
[2022-01-04 16:23] LABS: THYROID STIMULATING HORMONE 1.24 uIU/mL (0.34-5.60)
== END 2022-01-04 23:59 | disposition home or self-care (01) ==
LOC: LAB.R 08:00
PROVIDERS: ATTEND Internal Medicine
DX: Z00.00 Encounter for general adult medical examination without abnormal findings (principal); G25.2 Other specified forms of tremor; F32.A Depression, unspecified; M25.559 Pain in unspecified hip; I10 Essential (primary) hypertension; E03.9 Hypothyroidism, unspecified; R73.01 Impaired fasting glucose; R41.3 Other amnesia; G43.B0 Ophthalmoplegic migraine, not intractable; E53.8 Deficiency of other specified B group vitamins
CPT/HCPCS: 80053; 80061; 82607; 83721; 84443; 85025

== ENCOUNTER 2022-01-13 12:22 | Outpatient (CLI) | payer MEDICARE ==
--- NOTE | 2022-01-13 14:10 | Ultrasound Report ---
LIMITED ULTRASOUND OF LEFT BREAST: 01/13/2022 CLINICAL: Focal left breast pain. Comparison is made to exams dated: 01/13/2022 mammogram and 03/15/2017 mammogram - [facility]. Ultrasound of the left breast 7-8 o'clock region was performed. Dodge scale images of the real-time examination were reviewed. No significant abnormalities were seen sonographically in the left breast. Specifically, no finding to explain the patient's pain. IMPRESSION: NEGATIVE There is no sonographic correlate to the patient's pain and no evidence of malignancy. Return to annual mammogram screening schedule is recommended. Findings and recommendations were conveyed to the patient at time of exam. This exam was interpreted at Station ID: [id number]. Electronically Signed By: Olivia reeves/:01/13/2022 13:37:43 Ultrasound BI-RADS: 1 Negative BI-RADS CATEGORY: (1) - 1 RECOMMENDATION: (ANNUAL) - Recommend routine annual screening mammography. [id number] return to screening LATERALITY: (B)
--- NOTE | 2022-01-13 14:10 | Mammography Report ---
BILATERAL DIGITAL DIAGNOSTIC MAMMOGRAM 3D/2D: 01/13/2022 CLINICAL: Focal left breast pain. Rt side due for screening. Comparison is made to exam dated: 03/15/2017 mammogram - [facility]. There are sca ttered fibroglandular elements in both breasts. No significant masses, calcifications, or other findings are seen in either breast. Specifically, no finding to explain the patient's lower inner quadrant pain. Mammograms are otherwise stable. IMPRESSION: INCOMPLETE: NEEDS ADDITIONAL IMAGING EVALUATION There is no abnormality seen in the left breast to correspond with the pain in the inferior medial qu adrant. Ultrasound is recommended for full evaluation of this area. This was performed immediately f ollowing this exam. Based on the Tyrer Cuzick model (a risk assessment model) the patients lifetime risk is 2.8% and her 10 year risk is 2.5%. According to the ACR, ACS, and NCCN guidelines, an annual breast MRI exam feliberto g with mammogram is recommended if the patients lifetime risk is 20% or greater. This exam was interpreted at Station ID: [id number]. NOTE: For mammograms, a report in lay terms will be sent to the patient. Approximately 15% of breast malignancies will not be visualized mammographically. In the management of a palpable breast mass, a negative mammogram must not discourage biopsy of a clinically suspicious lesion. Electronically Signed By: Olivia reeves/:01/13/2022 13:13:09 ACR BI-RADS Category 0: Incomplete 3340F PARENCHYMAL PATTERN: (A) - The breast(s) demonstrate(s) scattered fibroglandular densities. BI-RADS CATEGORY: (0) - 0 Ultrasound [id number] Immediate follow-up LATERALITY: (B)
== END 2022-01-13 12:23 | disposition home or self-care (01) ==
LOC: DI 12:22
PROVIDERS: ATTEND Internal Medicine
DX: N64.4 Mastodynia (principal)

== ENCOUNTER 2022-01-13 12:27 | Outpatient (CLI) | payer MEDICARE ==
--- NOTE | 2022-01-13 15:30 | XRAY Report ---
PROCEDURE: Chest 2 View X-Ray INDICATIONS: HIP PAIN, DYSPNEA TECHNIQUE: 2 view(s) of the chest. COMPARISON: None. FINDINGS: Surgical changes and devices: Thoracolumbar fusion hardware is present. Lungs and pleura: No pleural effusions or pneumothorax. Lungs are clear. Mediastinum: Mediastinal contours are normal. Heart size is normal. Bones and chest wall: No suspicious bony abnormalities. Soft tissues appear unremarkable. IMPRESSION: No acute process. Reviewed by: Jessee Avery MD on 01/13/2022 3:29 PM PDT Approved by: Jessee Avery MD on 01/13/2022 3:29 PM PDT Station ID: [id number]
--- NOTE | 2022-01-13 17:15 | XRAY Report ---
PROCEDURE: Hips 2V BILAT INDICATIONS: HIP PAIN, DYSPNEA TECHNIQUE: 2 views of each hip were acquired. COMPARISON: None. FINDINGS: Bones: No fractures or dislocations. No suspicious bony lesions. Mild degenerative joint disease i n hips and sacroiliac joints bilaterally. The visualized pelvic ring appears intact. Osteitis pubis. Suspect a bone island in the right inferior pubic ramus. Soft tissues: No suspicious soft tissue calcifications or masses. IMPRESSION: Mild degenerative joint disease in hips and sacrum joints. Reviewed by: Israel Reese MD on 01/13/2022 5:14 PM PDT Approved by: Israel Reese MD on 01/13/2022 5:14 PM PDT Station ID: [id number]
== END 2022-01-13 12:28 | disposition home or self-care (01) ==
LOC: DI 12:27
PROVIDERS: ATTEND Internal Medicine
DX: R06.00 Dyspnea, unspecified (principal); M16.0 Bilateral primary osteoarthritis of hip; M47.898 Other spondylosis, sacral and sacrococcygeal region

== ENCOUNTER 2022-03-30 08:44 | Emergency (ER) | payer MEDICARE ==
[2022-03-30 09:38] LABS: BASOPHILS % (AUTO) 0.3 %; EOSINOPHILS # (AUTO) 0.1 10^3/uL (0.0-0.7); EOSINOPHILS % (AUTO) 0.7 %; HCT - HEMATOCRIT 43.8 % (37.0-47.0); HGB - HEMOGLOBIN 14.3 g/dL (12.0-16.0); LYMPHOCYTES # (AUTO) 0.8 10^3/uL (1.5-3.5); LYMPHOCYTES % (AUTO) 9.4 %; MEAN CORPUSCULAR HEMOGLOBIN 29.7 pg (27.0-31.0); MEAN CORPUSCULAR HGB CONC 32.6 g/dL (32.0-36.0); MEAN CORPUSCULAR VOLUME 90.9 fL (81.0-99.0); MEAN PLATELET VOLUME 10.9 fL (7.9-10.8); MONOCYTES # (AUTO) 1.3 10^3/uL (0.0-1.0); MONOCYTES % (AUTO) 14.3 %; NEUTROPHILS # (AUTO) 6.7 10^3/uL (1.5-6.6); PLT - PLATELET COUNT 205 10^3/uL (130-450); RED BLOOD COUNT 4.82 10^6/uL (4.20-5.40); RED CELL DISTRIBUTION WIDTH 12.7 % (12.0-15.0); WHITE BLOOD COUNT 8.9 x10^3/uL (4.8-10.8)
[2022-03-30 09:53] LABS: ALBUMIN 3.6 g/dL (3.2-5.5); ALBUMIN/GLOBULIN RATIO 0.9 (1.0-2.2); BILIRUBIN,TOTAL 0.8 mg/dL (0.2-1.0); CALCIUM 9.5 mg/dL (8.5-10.3); CREATININE 0.9 mg/dL (0.4-1.0); POTASSIUM 4.4 mmol/L (3.5-5.0); TOTAL PROTEIN 7.4 g/dL (6.7-8.2)
[2022-03-30] MEDS ORDERED: KETOROLAC 30 MG/ML VIAL IVP STA (11:20)
[2022-03-30] MEDS ORDERED: SODIUM CHLORIDE 0.9% 1,000 ML IV STA (11:20)
--- NOTE | 2022-03-30 11:22 | ED Physician Documentation ---
PD HPI ABD PAIN - Stated complaint Stated Complaint: KIDNEY STONES - Chief complaint Chief Complaint: Abd Pain - History obtained from History obtained from: Patient - History of Present Illness Timing - onset: How many days ago (3) Timing - duration: Days (3) Timing - details: Gradual onset, Still present Quality: Sharp, Pain Location: Suprapubic Radiation: Lower back, Left flank Improved by: Laying still, Meds Worsened by: Moving Associated symptoms: Nausea, Constipation, Dysuria. No: Vomiting, Diarrhea Similar symptoms before: Diagnosis (UTI) Recently seen: Not recently seen - Additional information Additional information: [id number] Radha Cardona is concerned that she may have a kidney stone. She is complaining of some pain in her lower pelvic area feeling like she has been hit with a 2 x 4. She has other scattered pain and she has urinary symptoms. She does not have fever or vomiting. Review of Systems Constitutional: reports: Chills, Sweats. denies: Fever Ears: denies: Ear pain Nose: denies: Congestion Throat: denies: Sore throat Cardiac: denies: Chest pain / pressure, Palpitations Respiratory: denies: Dyspnea, Cough GI: reports: Abdominal Pain, Nausea. denies: Vomiting, Constipation, Diarrhea : reports: Dysuria, Frequency Skin: denies: Rash Musculoskeletal: reports: Back pain. denies: Neck pain, Extremity pain Neurologic: denies: Generalized weakness, Focal weakness, Numbness PD PAST MEDICAL HISTORY - Past Medical History Cardiovascular: Hypertension Respiratory: None Neuro: Tremors Endocrine/Autoimmune: HyPOthyroidism GI: Chronic diarrhea, Diverticulitis, Cholelithiasis WEBSITE OPTIMIZATION STRATEGIST: None : Kidney stones HEENT: Chronic vision loss, Chronic hearing loss Psych: Depression Musculoskeletal: Osteoarthritis, Chronic back pain Derm: None - Past Surgical History Past Surgical History: Yes General: Cholecystectomy Ortho: Spine surgery /WEBSITE OPTIMIZATION STRATEGIST: Hysterectomy, Other - Present Medications Home Medications: Ambulatory Orders Medication Instructions Recorded Confirmed Escitalopram [Lexapro] 20 mg PO DAILY 08/13/15 03/30/22 Levothyroxine [Synthroid] 75 mcg PO DAILY 08/13/15 03/30/22 Ciprofloxacin HCl [Cipro] 500 mg PO BID #14 tablet 03/30/22 Propranolol ER [Inderal LA] 60 mg PO DAILY 03/30/22 03/30/22 - Allergies Allergies/Adverse Reactions: Allergies Allergy/AdvReac Type Severity Reaction Status Date / Time gabapentin Allergy Hallucinati Verified 03/30/22 09:14 ons milk Allergy Unknown Verified 03/30/22 09:14 hydromorphone HCl * AdvReac Intermediate Nausea Verified 03/30/22 09:14 [From Dilaudid] methocarbamol AdvReac Intermediate Nausea Verified 03/30/22 09:14 - Social History Does the pt smoke?: No Smoking Status: Never smoker Does the pt drink ETOH?: Yes Does the pt have substance abuse?: No - Immunizations Immunizations are current?: No Immunizations: TDAP >10years/unknown - POLST Patient has POLST: No PD ED PE NORMAL - Vitals Vital signs reviewed: Yes (normal ) - General General: Alert and oriented X 3, No acute distress, Well developed/nourished - HEENT HEENT: Atraumatic, PERRL, EOMI - Neck Neck: Supple, no meningeal sign, No bony TTP - Cardiac Cardiac: RRR, No murmur - Respiratory Respiratory: No respiratory distress, Clear bilaterally - Abdomen Abdomen: Normal bowel sounds, Soft, Non distended, No organomegaly, Other (mild LLQ tenderness ) - Back Back: No CVA TTP, No spinal TTP - Derm Derm: Normal color, Warm and dry, No rash - Extremities Extremities: No deformity, No edema - Neuro Neuro: Alert and oriented X 3, whizzer hand 2-12 intact, No motor deficit, No sensory deficit, Normal speech Eye Opening: Spontaneous Motor: Obeys Commands Verbal: Oriented GCS Score: 15 - Psych Psych: Normal mood, Normal affect Results - Vitals Vitals: Vital Signs - 24 hr 03/30/22 03/30/22 03/30/22 09:10 11:13 13:00 Temperature 36.4 C L Heart Rate 67 61 68 Respiratory 20 18 18 Rate Blood Pressure 121/68 138/67 H 150/72 H O2 Saturation 96 96 97 Oxygen O2 Source Room air - Labs Labs: Laboratory Tests 03/30/22 03/30/22 03/30/22 09:27 09:27 09:30 WBC 8.9 RBC 4.82 Hgb 14.3 Hct 43.8 MCV 90.9 MCH 29.7 MCHC 32.6 RDW 12.7 Plt Count 205 MPV 10.9 H Neut # (Auto) 6.7 H Lymph # (Auto) 0.8 L [place] # (Auto) 1.3 H Eos # (Auto) 0.1 Baso # (Auto) 0.0 Absolute Nucleated RBC 0.00 Nucleated RBC % 0.0 Sodium 140 Potassium 4.4 Chloride 104 Carbon Dioxide 28 Anion Gap 8.0 BUN 13 Creatinine 0.9 Estimated GFR (MDRD) 61 L Glucose 124 H Calcium 9.5 Total Bilirubin 0.8 AST 21 ALT 20 Alkaline Phosphatase 81 Total Protein 7.4 Albumin 3.6 Globulin 3.8 Albumin/Globulin Ratio 0.9 L Lipase 26 Urine Color YELLOW Urine Clarity SL. CLOUDY Urine pH 6.0 Ur Specific [place] 1.015 Urine Protein 100 H Urine Glucose (UA) NEGATIVE Urine Ketones TRACE Urine Occult Blood MODERATE H Urine Nitrite NEGATIVE Urine Bilirubin NEGATIVE Urine Urobilinogen 0.2 (NORMAL) Ur Leukocyte Esterase TRACE H Urine RBC 0-5 Urine WBC >25 H Ur Squamous Epith Cells FEW Squamous Urine Bacteria Few Ur Microscopic Review INDICATED Urine Culture Comments INDICATED - Rads (name of study) CT ab/pel Radiology: Prelim report reviewed (Impression: 1. A 1 to 2 mm nonobstructing stone is present at the right inferior kidney. No definite hydronephrosis demonstrated. Mild perinephric fat standing is present, new/increased since before. This is a nonspecific finding. ), Final report received (Correlation with urinalysis to assess for urinary tract infection may be helpful. Mild increase in vertebral body height loss of previously demonstrated L3 and L4 compression fractures), EMP read indepedently, See rad report Procedures - IVC sono (time) 1115 Bedside IVC sono: IVC measures (cm) (1.3), IVC collapsed c insp (cm) (complete), Dehydration (mild est <1 liter deficit) PD MEDICAL DECISION MAKING - ED course Complexity details: reviewed old records, reviewed results, re-evaluated patient, considered differential, d/w patient ED course: 73-year-old female with a history of lower abdominal pain and flank pain has no flank tenderness she does have urinary tract infection on evaluation of the urine and a CT scan is without evidence of kidney stone. She is administered intravenous saline and Rocephin as well as Toradol. Departure - Departure Disposition: 01 Home, Self Care Clinical Impression: Urinary tract infection Qualifiers: Urinary tract infection type: acute cystitis Hematuria presence: with hematuria Qualified Code(s): N30.01 - Acute cystitis with hematuria Condition: Stable Instructions: ED UTI Cystitis Female Follow-Up: Donna Diaz MD [Primary Care Provider] - Prescriptions: Ciprofloxacin HCl [Cipro] 500 mg PO BID #14 tablet Comments: Radha today looks like you have a urinary tract infection and we have given you a dose of intravenous antibiotic. 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 Our expectation is for continued improvement. Discharge Date/Time: 03/30/22 13:25
[2022-03-30 11:27] LABS: BILIRUBIN,URINE NEGATIVE (NEGATIVE); CLARITY,URINE SL. CLOUDY (CLEAR); GLUCOSE, URINE (UA) NEGATIVE (NEGATIVE); KETONES,URINE (UA) TRACE mg/dL (NEGATIVE); LEUKOCYTE ESTERASE, URINE TRACE (NEGATIVE); NITRITE,URINE NEGATIVE (NEGATIVE); OCCULT BLOOD,URINE MODERATE (NEGATIVE); PROTEIN,URINE 100 mg/dL (NEGATIVE); UROBILINOGEN,URINE 0.2 (NORMAL) E.U./dL (NORMAL)
--- NOTE | 2022-03-30 11:40 | CT Report ---
PROCEDURE: Abdomen/Pelvis WO INDICATIONS: flank pain TECHNIQUE: Noncontrast 5 mm thick sections acquired from the diaphragms to the symphysis. 5 mm coronal and sagi ttal reformats were then performed. For radiation dose reduction, the following was used: automated exposure control, adjustment of mA and/or kV according to patient size. COMPARISON: CT abdomen pelvis 07/31/2021. FINDINGS: Image quality: Excellent. Visualized lung bases: No pleural effusion. Liver and biliary tree: Unremarkable noncontrast appearance. Gallbladder: Surgically absent. Spleen: Unremarkable noncontrast appearance. Pancreas: Unremarkable noncontrast appearance. Adrenal glands: Unremarkable noncontrast appearance. Kidneys and ureters: 1-2 mm nonobstructing stone at the right inferior kidney. No definite left-sided stones visualized. Probable renal sinus cysts and extrarenal pelves present bilaterally. Mild perine phric fat stranding present, new/increased since before. Gastrointestinal tract: Sigmoid colonic anastomosis present. No bowel obstruction. Peritoneal cavity: No free air or substantial free fluid. Bladder: No stones visualized. Pelvic organs: Uterus not clearly visualized, could be surgically absent or be related to senescent c hange. Vasculature: No abdominal aortic aneurysm. Musculoskeletal: Degenerative change of the spine. Redemonstrated thoracolumbar fusion. Redemonstrate d L3 and L4 superior endplate compression deformities, increased height loss since the previous exam, approximately 20% L3, 10% L4. IMPRESSION: 1. A 1-2 mm nonobstructing stone is present at the right inferior kidney. 2. No definite hydronephrosis demonstrated. 3. Mild perinephric fat stranding is present, new/increased since before. This is a nonspecific findi ng. Correlation with urinalysis to assess for urinary tract infection may be helpful. 4. Mild increase in vertebral body height loss of previously demonstrated L3 and L4 compression fract ures. Reviewed by: King Nuno MD on 03/30/2022 11:38 AM PDT Approved by: King Nuno MD on 03/30/2022 11:38 AM PDT Station ID: [id number]
[2022-03-30 11:44] LABS: RBC,URINE 0-5 /HPF (0-5); WBC,URINE >25 /HPF (0-5)
[2022-03-30 11:45] LABS: BACTERIA,URINE Few /HPF (None Seen); SQUAMOUS EPITHELIAL CELL,UR FEW Squamous (<= Few)
[2022-03-30] MEDS ORDERED: cefTRIAXone 1 GM in SODIUM CHLORIDE 0.9% MINIBAG 100 ML IV STA (12:06)
[2022-03-30 13:08] VITALS: BP 150/72
== END 2022-03-30 13:25 | disposition home or self-care (01) ==
LOC: ED 08:44
DX: N30.01 Acute cystitis with hematuria (principal); E86.0 Dehydration; I10 Essential (primary) hypertension
CPT/HCPCS: 36415; 80053; 81001; 81003; 83690; 85025; 87077; 87086; 87181; 96361; 96365; 96375; 99282

== ENCOUNTER 2022-08-01 08:33 | Outpatient (CLI) | payer MEDICARE ==
--- NOTE | 2022-08-01 14:57 | MRI Report ---
PROCEDURE: MRI brain without contrast INDICATIONS: HEADAHCE TECHNIQUE: Noncontrast axial T1 spin echo, axial T2 fast spin echo, sagittal and axial FLAIR, coronal T2 fast sp in echo, axial gradient echo, axial diffusion and ADC through the brain. COMPARISON: None. FINDINGS: Image quality: Excellent. CSF Spaces: Basal cisterns are patent. No extra-axial fluid collections. Ventricles are normal in size and shape. Brain: No intracranial masses or hemorrhage. Dodge/white matter interface is normal. Brainstem appe ars normal. Diffusion-weighted images demonstrate no acute infarct. Normal intravascular flow voids are present. Mild age-related atrophy and multifocal chronic ischemic change Skull and face: Calvarium has normal marrow signal. Orbits appear normal. Bilateral intraocular le ns replacements noted. Sinuses: Sinuses and mastoids are clear. IMPRESSION: Mild age-appropriate atrophy and white matter chronic ischemic change without acute infarct, hemorrha ge or mass lesion Reviewed by: Jose Sarah MD on 08/01/2022 1:56 PM AK Approved by: Jose Sarah MD on 08/01/2022 1:56 PM AK Station ID: [id number]
== END 2022-08-01 08:34 | disposition home or self-care (01) ==
LOC: DI 08:33
PROVIDERS: ATTEND Internal Medicine
DX: R51.9 Headache, unspecified (principal)

== ENCOUNTER 2022-11-14 09:16 | Outpatient (CLI) | payer MEDICARE ==
--- NOTE | 2022-11-14 09:42 | CARDIAC PROCEDURE NOTE ---
Stress Test Report Service Date: 11/14/22 Service Time: 09:30 Ordering Provider: Donna Diaz MD Indication for Test: Assess exertional dyspnea. Significant Medical History: Radha is referred for evaluation of progressive exertional dyspnea, present for almost a year but worsening in the past 4 to 5 months. She mentions a specific episode occurring in June 2022, when there was snow on her property and she became markedly dyspneic with walking, causing her to realize that this was a significant issue for her. She denies experiencing any chest discomfort, diaphoresis, nausea or lightheadedness with the episodes, though she occasi onally does have the latter occurring rather randomly. She lives independently and remains active with her household and property chores, though having to pace herself. She is also under the care of a Neurologist for concerns including tremor, perioral tingling, question of some facial muscle asymmetry and word forming hesitation during speech. She has been on anti-hypertensive medication for a relatively short period including hydrochlorothiazide, amlodipine, as well extended-release propranolol that was started several months prior, for her tremor. She has not taken the propranolol for almost 36 hours prior to today's test. Cardiac Risk Factors: Positive for hypertension and hyperlipidemia; mother with history of CVA but no history of CAD to her knowledge. No history of cigarette smoking or diabetes. Type of Stress Test: ETT with Echocardiography Procedure: -Exercise Treadmill Test- After signing informed consent, the patient underwent rest echo imaging and then performed treadmill exercise using a Modified Mejia protocol. The patient exercised for 10 minutes 5 seconds and achieved a peak heart rate of 146 (100 percent predicted maximum heart rate for age), and an estimated workload of 5.9 METS. The test was terminated due to fatigue/shortness of breath. Resting heart rate: 63 Peak heart rate: 146 Normal response to exercise. Resting BP: 140/87 Peak BP: 186/78 Normal BP response to exercise. Rhythm during exercise: Sinus rhythm throughout with no PVCs. Symptoms: She first described feeling short of breath early in stage III, but was able to carry on for 4 additional minutes before having to stop; she also experiencing heavy legs but denied any chest discomfort. EKG at rest showed sinus rhythm with an irregular baseline likely due to tremor and mild T-wave flattening seen on repeat rest tracings, but no specific concerning abnormalities. EKG at peak stress showed J-point depression with upsloping ST segments, NOT meeting diagnostic criteria for ischemia. In Recovery heart rate rapidly/normally decreased, with slower decrease in BP. Please NOTE that resting room air O2 saturation was 95%, with gradual early decrease to as low as 90% in early stage II but with gradual increase back to 93-94% in later exercise stages. Echo imaging performed at rest and with stress will be reported separately. Pipe Ely MD, was present throughout this treadmill stress study and supervised it in its entirety. Summary: 1) Exercise tolerance well above average for age as evidenced by EUNICE of -87% (modified Mejia protocol) and at least >-20% if extrapolated to the Mejia protocol. 2) Normal resting EKG. 3) Adequate level of exercise was achieved on this treadmill stress test. 4) Normal BP response to exercise. 5) No ischemic changes by EKG criteria were seen at peak stress. 6) Echo image interpretation reveals normal left ventricular size, wall thickness and systolic function, with appropriate hyperdynamic augmentation of all segments with exercise, indicating no evidence of prior infarct or inducible ischemia. No significant valvular abnormality or elevation of estimated pulmonary artery systolic pressure seen on screening study. See separate report for more details. Conclusions and Recommendations: 1) Overall, reassuring results regarding her exertional dyspnea, as it did not cause early test termination and was not associated with abnormal O2 desaturation, though her resting level of 95% may have been slightly below average. 2) There were no symptoms, EKG changes or echo findings suggestive of cardiac ischemia, with the caveat that some of the images were obtained at a subdiagnostic heart rate.
--- NOTE | 2022-11-14 16:06 | XRAY Report ---
PROCEDURE: Chest 2 View X-Ray INDICATIONS: DYSPNEA TECHNIQUE: 2 views of the chest were acquired. COMPARISON: 01/13/2022 FINDINGS: Surgical changes and devices: Thoracolumbar fusion hardware. Lungs and pleura: No pleural effusions or pneumothorax. Lungs are clear. Calcified granuloma, rig ht upper lobe. Mediastinum: Mediastinal contours appear normal. Heart size is normal. Bones and chest wall: No suspicious bony lesions. Overlying soft tissues appear unremarkable. Stabl e appearance of moderate mid to lower thoracic compression. No new compressions. IMPRESSION: No acute cardiopulmonary process. Reviewed by: Gage Ley MD on 11/14/2022 4:05 PM PDT Approved by: Gage Ley MD on 11/14/2022 4:05 PM PDT Station ID: [id number]
== END 2022-11-14 09:17 | disposition home or self-care (01) ==
LOC: DI 09:16
PROVIDERS: ATTEND Internal Medicine
DX: R06.09 Other forms of dyspnea (principal); R09.02 Hypoxemia; J90 Pleural effusion, not elsewhere classified; R06.00 Dyspnea, unspecified; R60.9 Edema, unspecified; I10 Essential (primary) hypertension; E78.5 Hyperlipidemia, unspecified
CPT/HCPCS: 93350

== ENCOUNTER 2022-11-20 12:44 | Outpatient (CLI) | payer MEDICARE ==
[2022-11-20 13:11] LABS: CREATININE 0.7 mg/dL (0.4-1.0)
--- NOTE | 2022-11-20 14:46 | CT Report ---
PROCEDURE: CHEST W INDICATIONS: HYPOXIA, DYPNEA ON EXERTION, PLEURAL EFFUSION CONTRAST: 100ml Omnipaque 350 TECHNIQUE: After the administration of intravenous contrast, 1 mm axial images were acquired from the pulmonary apices through the posterior costophrenic angles. Axial 5 mm soft tissue kernel reconstructions were performed as well as 8 mm axial MIP and coronal and sagittal 5 mm reformations. For radiation dose reduction, the following was used: automated exposure control, adjustment of mA and/or kV according to patient size. COMPARISON: 11/14/2022 radiograph, chest CT 02/24/2019 FINDINGS: Image quality: Good Lungs and pleura:No significant effusion. Scattered scarring/atelectasis. No new or enlarging nodules . Multiple small nodules are present. There are also granulomas. Mediastinum, heart, and esophagus: No significant hiatal hernia. No pathologic adenopathy by size cri teria. Heart size is overall normal. Stable prominent precarinal lymph node. Chest wall and thyroid: Unremarkable Upper abdomen: Possible hepatic steatosis. Cholecystectomy clips. Bones: Thoracolumbar fusion hardware. No acute or suspicious osseous finding. Deformities and height loss of multiple vertebral bodies, most notably T12 and T9 are again seen. IMPRESSION: No acute abnormality identified in the chest. Stable/incidental findings are described above. Reviewed by: Rodger Esteves MD on 11/20/2022 2:44 PM PDT Approved by: Rodger Esteves MD on 11/20/2022 2:44 PM PDT Station ID: [id number]
== END 2022-11-20 12:45 | disposition home or self-care (01) ==
LOC: LAB 12:44
PROVIDERS: ATTEND Internal Medicine
DX: J90 Pleural effusion, not elsewhere classified (principal); Z79.899 Other long term (current) drug therapy; R09.02 Hypoxemia; R06.09 Other forms of dyspnea
CPT/HCPCS: 36415; 71260; 82565; Q9967

== ENCOUNTER 2022-12-07 13:17 | Outpatient (CLI) | payer MEDICARE ==
[2022-12-07] MEDS ORDERED: ALBUTEROL 1 PUFF INH STA (19:20)
== END 2022-12-07 13:18 | disposition home or self-care (01) ==
LOC: RT 13:17
PROVIDERS: ATTEND Internal Medicine
DX: J90 Pleural effusion, not elsewhere classified (principal); R09.02 Hypoxemia; R06.09 Other forms of dyspnea
CPT/HCPCS: 94060; 94729

== ENCOUNTER 2022-12-25 10:23 | Outpatient (CLI) | payer MEDICARE ==
[2022-12-25 10:43] LABS: BASOPHILS % (AUTO) 0.6 %; EOSINOPHILS # (AUTO) 0.1 10^3/uL (0.0-0.7); EOSINOPHILS % (AUTO) 2.5 %; HCT - HEMATOCRIT 40.5 % (37.0-47.0); HGB - HEMOGLOBIN 13.5 g/dL (12.0-16.0); LYMPHOCYTES # (AUTO) 1.3 10^3/uL (1.5-3.5); LYMPHOCYTES % (AUTO) 26.3 %; MEAN CORPUSCULAR HEMOGLOBIN 30.1 pg (27.0-31.0); MEAN CORPUSCULAR HGB CONC 33.3 g/dL (32.0-36.0); MEAN CORPUSCULAR VOLUME 90.2 fL (81.0-99.0); MEAN PLATELET VOLUME 10.4 fL (7.9-10.8); MONOCYTES # (AUTO) 0.6 10^3/uL (0.0-1.0); MONOCYTES % (AUTO) 11.6 %; NEUTROPHILS # (AUTO) 2.8 10^3/uL (1.5-6.6); PLT - PLATELET COUNT 210 10^3/uL (130-450); RED BLOOD COUNT 4.49 10^6/uL (4.20-5.40); RED CELL DISTRIBUTION WIDTH 12.7 % (12.0-15.0); WHITE BLOOD COUNT 4.8 x10^3/uL (4.8-10.8)
[2022-12-25 11:04] LABS: ALBUMIN 3.9 g/dL (3.2-5.5); ALBUMIN/GLOBULIN RATIO 1.2 (1.0-2.2); ALKALINE PHOSPHATASE 74 IU/L (42-121); ALT ALANINE AMINOTRANSFERASE 22 IU/L (10-60); AST ASPARTATE AMINOTRANSFERASE 21 IU/L (10-42); BILIRUBIN,TOTAL 0.8 mg/dL (0.2-1.0); BUN - BLOOD UREA NITROGEN 16 mg/dL (6-20); CARBON DIOXIDE - CO2 28 mmol/L (21-32); CHLORIDE 106 mmol/L (101-111); CHOL/HDL RATIO 3.6 (<4.4); CHOLESTEROL 231 mg/dL; CREATININE 0.7 mg/dL (0.4-1.0); GFR - MDRD 82 (>89); GLUCOSE 107 mg/dL (70-100); HDL CHOLESTEROL 65 mg/dL; LDL CHOLESTEROL,CALCULATED 137 mg/dL; LDL/HDL RATIO 2.1 (<4.4); POTASSIUM 3.6 mmol/L (3.5-5.0); SODIUM 139 mmol/L (135-145); TOTAL PROTEIN 7.2 g/dL (6.7-8.2); TRIGLYCERIDES 147 mg/dL; VLDL CHOLESTEROL 29 mg/dL
[2022-12-25 11:16] LABS: THYROID STIMULATING HORMONE 1.4 uIU/mL (0.34-5.60)
[2022-12-25 12:18] LABS: ESTIMATED AVERAGE GLUCOSE 111 mg/dL (70-100); HEMOGLOBIN A1c% 5.5 % (4.27-6.07)
== END 2022-12-25 10:24 | disposition home or self-care (01) ==
LOC: LAB 10:23
PROVIDERS: ATTEND Internal Medicine
DX: I10 Essential (primary) hypertension (principal); Z79.899 Other long term (current) drug therapy; R73.01 Impaired fasting glucose; L40.9 Psoriasis, unspecified; R19.7 Diarrhea, unspecified
CPT/HCPCS: 36415; 80053; 80061; 81001; 82306; 82607; 83036; 83721; 84443; 85025; 87086

== ENCOUNTER 2023-03-03 08:41 | Outpatient (CLI) | payer MEDICARE | END 2023-03-03 08:42 | disposition home or self-care (01) | LOC: LAB 08:41 | PROVIDERS: ATTEND Obstetrics & Gynecology Female Pelvic Medicine and Reconstructive Surgery | DX: R32 Unspecified urinary incontinence (principal) | CPT/HCPCS: 87086 ==